=== PATIENT | female | born 2005 | race Hispanic/Latino ===

== ENCOUNTER 2024-11-12 20:26 | Emergency (ER) | payer OTHER, SELFPAY ==
[2024-11-12 20:29] VITALS: BP 130/91
[2024-11-12 20:44] LABS: % Basophils 0.4 % (0-2); % Eosinophils 1.7 % (0-6); % Immature Granulocytes 0.3 % (0-0.5); % Lymphocytes 22.7 % (20.5-51.1); % Monocytes 9.2 % (1.7-9.3); % Neutrophils 65.7 % (42.2-75.2); Absolute Basophils 0.1 10^3/uL (0-0.2); Absolute Eosinophils 0.2 10^3/uL (0-0.7); Absolute Lymphocytes 2.9 10^3/uL (1.2-3.4); Absolute Monocytes 1.2 10^3/uL (0.1-0.6); Absolute Neutrophils 8.3 10^3/uL (1.4-6.5); Hematocrit 35.8 % (37.0-47.0); Hemoglobin 11.9 g/dL (12.0-16.0); Mean Corp Hgb Conc. 33.2 g/dL (33.0-37.0); Mean Corpuscular Hgb 28.3 pg (27.0-31.0); Mean Corpuscular Volume 85.2 fL (81.0-99.0); Mean Platelet Volume 10.1 fL (7.4-10.4); Nucleated Red Blood Cells % 0 %; Platelet Count 404 10^3/uL (130-400); Red Cell Dist. Width 12.5 % (11.5-14.5); White Blood Cell Count 12.6 10^3/uL (4.8-10.8)
[2024-11-12 21:00] LABS: ALT (SGPT) 15 U/L (0-35); AST (SGOT) 20 U/L (14-36); Albumin 4.8 g/dl (3.5-5.0); Alkaline Phosphatase 63 U/L (38-126); Blood Urea Nitrogen 11 mg/dl (7-17); Calcium 9.6 mg/dl (8.4-10.2); Carbon Dioxide 23 mmol/L (22-30); Chloride 102 mmol/L (98-107); Glucose 92 mg/dl (70-99); Lipase 125 U/L (23-300); Potassium 3.7 mmol/L (3.5-5.1); Sodium 138 mmol/L (135-145); Total Bilirubin 0.2 mg/dl (0.2-1.3); Total Protein 7.6 g/dl (6.3-8.2); eGFR > 60.00
--- NOTE | 2024-11-12 22:34 | ED.GENMED ---
History of Present Illness
General
Chief Complaint: Abdominal Pain
Time Seen by Provider: 11/12/24 22:33
History of Present Illness
History of Present Illness:
TIME OF INITIAL ENCOUNTER: 12:40 PM
HPI: The patient presents with right-sided abdominal/flank pain. This started 1 week ago. She had some dark diarrhea for the last couple of days which is resolved. She is not sure of when she last had a bowel movement. She has no urinary symptoms
EXAM:
GENERAL: Well appearing in no distress
HEENT: Moist oral mucosa
CARDIOVASCULAR: No murmurs, normal heart rate, regular rhythm, No chest wall tenderness
PULMONARY: No respiratory distress, breath sounds are clear and equal
ABDOMEN: Soft with no peritoneal signs, very mild lower abdominal tenderness, mild right CVA tenderness
NEUROLOGIC: Excellent strength all extremities, no coordination deficits
PSYCHIATRIC: Appropriate mental status, normal insight and judgement
EXTREMITIES: Nontender, no edema, moves all extremities equally
SKIN: No rash, no lesions
NUMBER AND COMPLEXITY OF PROBLEMS ADDRESSED AT THE ENCOUNTER
� Chronic conditions affecting care: No significant past medical history
� Acute Exacerbation and/or Progression of Chronic Illness: This is an acute problem
� Differential Diagnosis includes: Constipation, ureteral stone/colic, mesenteric adenitis, appendicitis, UTI/pyelonephritis
AMOUNT AND/OR COMPLEXITY OF DATA TO BE REVIEWED AND ANALYZED
� I performed an independent evaluation of and my interpretation is:
EKG:
CT: CT imaging shows increased amount of stool otherwise relatively unremarkable.
X-rays:
Laboratory Studies: White count 12.6, hemoglobin 11.9, chemistries including lipase and LFTs unremarkable
Other:
� Review of other/old records: The patient was seen here in 2021 and at that time had a white count that was normal in July.
� Clinical information was obtained by an independent historian: I spoke to boyfriend and mother at bedside
� Prescriptions/Medications Considered but not given:
� Further testing considered but not performed:
RISK OF COMPLICATIONS AND/OR MORBIDITY OR MORTALITY OF PATIENT MANAGEMENT
� Social determinants of health affecting care: Lives at home
� Discussion with other providers:
� Escalation of care including admission/observation vs risk of discharge considered: The patient remains she is slightly uncomfortable but declined analgesia. Mild leukocytosis noted. Relatively unremarkable CT imaging with
exception of constipation�recommended MiraLAX. Urinalysis shows no evidence of infection.
ANY OTHER UPDATES:
On reassessment prior to discharge, the patient appears fairly comfortable. We talked about trying MiraLAX for the possibility of constipation.
Past History
Past History
ED Past Medical History: None
ED Past Surgical History: None
Phy Exam
Physical Exam
Physical Exam:
See HPI
Course
Orders/Labs/Results
Orders:
Orders
11/12/24 20:36
Complete Blood Count/With Diff Urgent
Comprehensive Metabolic Panel Urgent
HCG, Serum Qualitative Screen Urgent
Comment: ADD ON
Lipase Urgent
11/12/24 22:35
Urinalysis Reflex To Culture Urgent
Date Specimen was Collected: 11/13/24
Time Specimen was Collected: 00:37
11/12/24 22:57
Add On- LAB Urgent
Tests Added?: hcg serum screen
CT Abd/pel Without Iv Or Oral Urgent
Comment:
Reason For Exam: R flank and R abd pain
Abnormal Lab Results
11/12/24
20:36
WBC 12.6 H 10^3/uL
(4.8-10.8)
Hgb 11.9 L g/dL
(12.0-16.0)
Hct 35.8 L %
(37.0-47.0)
Plt Count 404 H 10^3/uL
(130-400)
Absolute Neuts (auto) 8.3 H 10^3/uL
(1.4-6.5)
Absolute Monos (auto) 1.2 H 10^3/uL
(0.1-0.6)
11/12/24 20:36
11/12/24 20:36
Vital Signs
Initial and Last Documented VS:
Initial Vital Signs
Temp Pulse Resp BP Pulse Ox
36.8 C 109 16 130/91 99
11/12/24 20:29 11/12/24 20:29 11/12/24 20:29 11/12/24 20:29 11/12/24 20:29
Last Documented Vital Signs
Temp Pulse Resp BP Pulse Ox
36.8 C 88 18 122/80 99
11/12/24 20:29 11/13/24 00:52 11/13/24 00:52 11/13/24 00:52 11/13/24 00:52
*Critical Care Note
Total Time (30-74mins, 75-104mins- exclusive of procedures): Not Applicable
ED Attending Note
-
Portions of this chart may have been created with voice recognition software.� Occasional wrong word or��sound alike� substitutions may have occurred due to the inherent limitations of voice recognition software.
Discharge Plan
Departure
Patient Disposition: Home (Routine Discharge)
Date of Disposition: 11/13/24
Time of Disposition: 00:34
Patient with high blood pressure during this ER visit?: Yes
Discharge Problem:
Abdominal pain
Instructions: Abdominal Pain
Prescriptions:
No Action
naproxen [Naprosyn] 500 mg tablet
500 mg PO BID Qty: 10 0RF
Referrals:
NONE,* [Family Provider] -
Activity Restrictions/Additional Instructions:
The cause of your symptoms is unclear however the CAT scan does show a large amount of stool. Therefore I recommend that you try [id number] MiraLAX to help have more bowel movement and this may help your abdominal pain. There was no sign of
appendicitis. The gallbladder appeared unremarkable. There is no sign of kidney stones or kidney swelling.
Interventions
Interventions:
*Risk Screen - Suicide Last Done: 11/12/24 20:29
*General Assessment Last Done: 11/12/24 20:29
*Neglect/Abuse Screening Last Done: 11/12/24 20:29
*ED COVID-19 Vaccine History Last Done: 11/13/24 00:00
*Nursing Disposition Last Done: 11/13/24 00:54
VG-Ykwrnq-Xocwamwhbu Assessment Last Done: 11/13/24 00:00
Discharge Date and Time
Discharge Date/Time: 11/13/24 00:55
Print Language: [place]
[2024-11-12 23:30] LABS: HCG, Serum Qualitative Screen Negative
[2024-11-13 00:51] LABS: Urine Albumin Negative (Neg - Trace); Urine Bilirubin Negative (Negative); Urine Character Clear (Clear); Urine Color Yellow; Urine Glucose Negative (Negative); Urine Ketone Negative (Negative); Urine Leukocyte Negative (Negative); Urine Nitrite Negative (Negative); Urine Occult Blood Negative (Negative); Urine Specific Gravity 1.025 (<1.030); Urine Urobilinogen Negative (Neg - 1+)
[2024-11-13 00:52] VITALS: BP 122/80
== END 2024-11-13 00:55 | disposition home or self-care (01) ==
LOC: EMR 20:26
PROVIDERS: Emergency Medicine; EMERGENCY PHYSICIAN Emergency Medicine
DX: R10.9 Unspecified abdominal pain (principal); E03.0 Congenital hypothyroidism with diffuse goiter
CPT/HCPCS: 99284; 74176; 80053; 81003; 83690; 84703; 85025